=== PATIENT | female | born 2005 | race African-American/Black ===

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

== ENCOUNTER 2024-01-20 00:48 | Emergency (ER) | payer OTHER ==
[~2024-01-20] VITALS: Ht 160 cm; Wt 59.1 kg
[2024-01-20] MEDS: HYDROGEN PEROXIDE 118 ML SOLUTION TP ONE (02:15)
[2024-01-20] MEDS: AMOX TR/POT CLAV 875 MG/125 MG TABLET PO ONE (02:15)
[2024-01-20] MEDS: PERTUSS(ACELL),DIPH,TET/PF 0.5 ML SYRINGE [ADULT] IM. ONE (02:17)
[2024-01-20] MEDS ORDERED: AMOX-457 PO (02:30)
[2024-01-20 02:41] VITALS: BP 127/75; PULSE 91; RESP 18
== END 2024-01-20 02:59 | disposition home or self-care (01) ==
LOC: EMS 00:48
DX: S61.452A Open bite of left hand, initial encounter (principal); S71.151A Open bite, right thigh, initial encounter; J45.909 Unspecified asthma, uncomplicated; W50.3XXA Accidental bite by another person, initial encounter; Y93.89 Activity, other specified; Y92.89 Other specified places as the place of occurrence of the external cause; Y99.8 Other external cause status
CPT/HCPCS: 90471; 90715; 99283

== ENCOUNTER 2024-01-28 21:03 | Emergency (ER) | payer OTHER ==
[~2024-01-28] VITALS: Ht 160 cm; Wt 59.1 kg
[~2024-01-28 21:03] MED LIST: AMOX-457 PO
[2024-01-28 21:16] VITALS: TEMP 98.3
[2024-01-28 22:33] VITALS: BP 128/85; PULSE 115; RESP 20
[2024-01-28] MEDS: BACITRACIN 28 GM OINTMENT TP ONE (22:44)
== END 2024-01-28 22:56 | disposition home or self-care (01) ==
LOC: EMS 21:03
DX: S71.151A Open bite, right thigh, initial encounter (principal); J45.909 Unspecified asthma, uncomplicated; W50.3XXA Accidental bite by another person, initial encounter; Y93.89 Activity, other specified; Y92.89 Other specified places as the place of occurrence of the external cause; Y99.8 Other external cause status
CPT/HCPCS: 99283